=== PATIENT | male | born 1960 | race Caucasian/White ===

== ENCOUNTER → 2017-09-11 | Day surgery (SDC) | payer BC ==
[~2017-09-11] MED LIST: ATENOLOL50 MG PO; FENTANYL CITRATE/PF 100MCG/2 ML INJ ONE; MIDAZOLAM HCL 2 MG/2 ML VIAL ONE; OR PHACO EYE KIT ONE; PREOP PHACO EYE KIT ONE
== END | disposition home or self-care (01) ==
LOC: OR 12:28
PROVIDERS: ATTEND Ophthalmology
DX: H25.12 Age-related nuclear cataract, left eye (principal); I10 Essential (primary) hypertension; R00.1 Bradycardia, unspecified; Z86.19 Personal history of other infectious and parasitic diseases
CPT/HCPCS: 66984; J2250; V2632

== ENCOUNTER 2018-11-11 16:28 | Inpatient (IN) | payer BC ==
[~2018-11-11] VITALS: Ht 175.3 cm; Wt 94.3 kg
[~2018-11-11 16:28] MED LIST changes: -FENTANYL CITRATE/PF 100MCG/2 ML INJ ONE; -MIDAZOLAM HCL 2 MG/2 ML VIAL ONE; -OR PHACO EYE KIT ONE; -PREOP PHACO EYE KIT ONE
--- OUTSIDE RECORDS SUMMARY | 2018-11-11 16:31 | XMS REPORT | Summary of Care ---
Author Author [facility] Address Unknown Phone Unavailable Encounter [facility]) [id number] Date(s): 07/19/16 - 08/17/16 [facility] Discharge Disposition: Home or Self Care Attending Physician: Jose Rafael Fernando MD Vital Signs No data available for this section Problem List No data available for this section Allergies, Adverse Reactions, Alerts No data available for this section Medications No data available for this section Results No data available for this section Immunizations No data available for this section Procedures No data available for this section Social History No data available for this section Assessment and Plan No data available for this section
--- OUTSIDE RECORDS SUMMARY | 2018-11-11 16:31 | XMS REPORT | Summary of Care ---
Author Author [facility] Address Unknown Phone Unavailable Encounter [facility]) [id number] Date(s): 06/18/16 - 07/17/16 [facility] Discharge Disposition: Home or Self Care [...]
--- OUTSIDE RECORDS SUMMARY | 2018-11-11 16:31 | XMS REPORT | Continuity of Care Document ---
Author Author [facility] Address Unknown Phone Unavailable Problems Problem Status Onset Date Classification Date Reported Comments Source RT RTC REPAIR Active 01/12/2016 [facility] [place] 780.79 - MALAISE AND FAT 786.05 - SHORTN Active 12/21/2014 [facility] [place] LT RTC REPAIR Active [facility] [place] LEFT RTC REPAIR Active [facility] [place] Medications Medication Details Route Status Patient Instructions Ordering Provider Order Date Source Allergies, Adverse Reactions, Alerts Substance Category Reaction Severity Reaction type Status Date Reported Comments Source Immunizations Immunization Date Given Site Status Last Updated Comments Source Results Order Name Results Value Reference Range Date Interpretation Comments Source Chest 2 views DX Chest 2 views DX Exam: Two-view chest x-ray Reason for Exam: Shortness of breath Comparison Exam: None Discussion: Cardiomediastinal silhouette is within normal limits. Both hemidiaphragms well visualized. No pulmonary edema or pleural effusions. No focal lung consolidations. Trachea is midline. No acute bony abnormalities. Impression: 1. No acute cardiopulmonary abnormalities. 12/21/2014 - - Read by: Gabriel Rocha MD Dictated Date/time: 12/21/14 13:15 Electronically Signed by: Gabriel Rocha MD 12/21/14 13:15 FINAL REPORT [facility] [place] Vital Signs Vital Sign Value Date Comments Source Encounters Location Location Details Encounter Type Encounter Number Reason For Visit Attending Provider ADM Date DC Date Status Source [facility] [place] [facility] [id number] Patrice Hart 12/21/2014 12/22/2014 [facility] [place] [facility] [id number] Jose Rafael Fernando 05/15/2016 06/14/2016 [facility] [place] [facility] [place] [facility] [id number] Jose Rafael Fernando 06/18/2016 07/18/2016 [facility] [place] [facility] [place] [facility] [id number] Jose Rafael Fernando 07/19/2016 08/18/2016 [facility] [place] [facility] [place] [facility] [id number] Jose Rafael Fernando 08/22/2016 09/21/2016 [facility] [place] [facility] [place] [facility] [id number] Jose Rafael Fernando 09/25/2016 10/25/2016 [facility] [place] Procedures Procedure Code Date Perfomer Comments Source
--- OUTSIDE RECORDS SUMMARY | 2018-11-11 16:31 | XMS REPORT | Summary of Care ---
Author Organization Unknown Address Unknown Phone Unavailable Encounter [facility]) [id number] Date(s): 12/21/14 - 12/21/14 [facility] - [place] [id number] [place] [address] [phone] Discharge Disposition: Home Physician Attending: Patrice Hart MD Vital Signs No data available for [...]
--- OUTSIDE RECORDS SUMMARY | 2018-11-11 16:31 | XMS REPORT | Summary of Care ---
Author Author [facility] Address Unknown Phone Unavailable Encounter [facility]) [id number] Date(s): 05/15/16 - 06/13/16 [facility] Discharge Disposition: Home or Self Care Attending [...]
--- OUTSIDE RECORDS SUMMARY | 2018-11-11 16:31 | XMS REPORT | Summary of Care ---
Author Author [facility] Address Unknown Phone Unavailable Encounter [facility]) [id number] Date(s): 08/22/16 - 09/20/16 [facility] Discharge Disposition: Home or Self Care [...]
--- OUTSIDE RECORDS SUMMARY | 2018-11-11 16:31 | XMS REPORT | Summary of Care ---
Author Author [facility] Address Unknown Phone Unavailable Encounter [facility]) [id number] Date(s): 09/25/16 - 10/24/16 [facility] Discharge Disposition: Home or Self Care Attending [...]
[2018-11-11] MEDS ORDERED: SODIUM CHLORIDE 0.9% 1000ML 1,000 ML IV STA (17:53)
[2018-11-11] MEDS ORDERED: VANCOMYCIN 1GM/NS 250 ML 250 ML IV ONE (18:00)
--- NOTE | 2018-11-11 19:45 | Diagnostic Imaging Report ---
LEFT KNEE X-RAY - 3 VIEWS HISTORY: ^pain and swelling ^[id number] ^1836 ^Y COMPARISON: None available. FINDINGS: Bones: No acute displaced fracture. Osseous alignment is within normal limits. Joints: The joint spaces are well-maintained. Soft tissues: The soft tissues appear unremarkable. IMPRESSION: No acute radiographic abnormality. Signed by: Dr. Yaritza Serrano M.D. on 11/11/2018 7:41 PM
[2018-11-11 20:38] LABS: ALANINE AMINOTRANSFERASE 34 IU/L (0-55); ALBUMIN 3.5 g/dL (3.5-5.0); ALBUMIN/GLOBULIN RATIO 0.9 (0.8-2.0); ALKALINE PHOSPHATASE 79 IU/L (40-150); ANION GAP 14.2 mmol/L (8-16); BLOOD UREA NITROGEN 10 mg/dL (7-26); BUN/CREATININE RATIO 12 (6-25); CALCIUM 10.2 mg/dL (8.4-10.2); CARBON DIOXIDE 24 mmol/L (22-29); CHLORIDE 98 mmol/L (98-107); CREATININE, SERUM 0.84 mg/dL (0.72-1.25); EST GLOMERULAR FILTRATION RATE > 60 ML/MIN (60-); GLUCOSE 109 mg/dL (74-118); POTASSIUM 4.2 mmol/L (3.5-5.1); SODIUM 132 mmol/L (136-145)
[2018-11-11 20:42] LABS: INR 0.96; PARTIAL THROMBOPLASTIN TIME 32.8 seconds (23.8-35.5); PROTHROMBIN TIME 13.7 seconds (11.9-14.5)
[2018-11-11] MEDS ORDERED: SODIUM CHLORIDE 0.9% 1000ML 1,000 ML ONE (21:08)
[2018-11-11] MEDS ORDERED: VANCOMYCIN 1GM/NS 250 ML 250 ML ONE (21:08)
[2018-11-11] MEDS ORDERED: TYLENOL # 31 EA PO (21:17)
[2018-11-11] MEDS ORDERED: CLINDAMYCIN HC300 MG PO (21:17)
[2018-11-11 21:46] LABS: BASOPHILS % 0.3 % (0.0-1.0); EOSINOPHILS % 0.2 % (0.0-6.0); HEMATOCRIT 44.4 % (38.2-49.6); HEMOGLOBIN 15.8 g/dL (14.0-18.0); LYMPHOCYTES # (AUTO) 1.7 (1.0-3.2); LYMPHOCYTES % 10.8 % (18.0-39.1); MEAN CORPUSCULAR HEMOGLOBIN 33.1 pg (28-32); MEAN CORPUSCULAR HGB CONC 35.6 g/dL (31-35); MEAN CORPUSCULAR VOLUME 92.9 fL (81-99); MONOCYTES # (AUTO) 1.3 (0.2-0.8); MONOCYTES % 7.8 % (4.4-11.3); NEUTROPHILS # (AUTO) 12.9 (2.1-6.9); NEUTROPHILS % 80.4 % (38.7-80.0); PLATELET COUNT 205 x10e3/uL (140-360); RED BLOOD COUNT 4.78 x10e6/uL (4.3-5.7); RED CELL DISTRIBUTION WIDTH 12.3 % (11.7-14.4)
[2018-11-11] MEDS ORDERED: ONDANSETRON HCL INJ 2MG/ML 2ML 2 MG/ML VIAL IV PRN (22:15)
[2018-11-11] MEDS ORDERED: MORPHINE SULFATE 2 MG/ML SYR 1ML IV PRN (22:15)
[2018-11-11] MEDS ORDERED: ACETAMINOPHEN 325 MG TAB PO PRN (22:15)
[2018-11-11] MEDS ORDERED: IBUPROFEN 400 MG TAB PO PRN (22:15)
--- OUTSIDE RECORDS SUMMARY | 2018-11-11 22:17 | XMS REPORT ---
Author [facility] Address Unknown Phone Unavailable Care Team Providers Care Tile Sprayer Name Role Phone Vianca DAMON Unavailable Unavailable Problems This patient has no known problems. Allergies, Adverse Reactions, Alerts This patient has no known allergies or adverse reactions. Medications This patient has no known medications. 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 FINDINGS: Bones: No acute displaced fracture. Osseous alignment is within normal limits. Joints: The joint spaces are well-maintained. Soft tissues: The soft tissues appear unremarkable. IMPRESSION: No acute radiographic abnormality. Signed by: Dr. Pardeep Lozano M.D. on 11/11/2018 7:41 PM Dictated By: PARDEEP LOZANO MD 40 Transcribed By: MERCY on 11/11/181940 COPY TO: MORRO LAMB NP
--- NOTE | 2018-11-11 22:30 | NUR ---
RECEIVED PATIENT FROM ER VIA STRETCHER. AAOX3. HAS REDNESS AND SWELLING TO L KNEE AND ASCENDING ANTERIOR THIGH. NO OPEN WOUNDS OR BRUISING. DENIES PAIN AT THIS TIME. ORIENTED TO ROOM. CALL LIGHT WITHIN REACH AND INSTRUCTED TO CALL FOR ASSISTANCE. PATIENT VERBALIZED UNDERSTANDING.
[2018-11-11] MEDS: MORPHINE SULFATE INJ 4 MG/ML INJ 1ML IV PRN (22:37)
--- NOTE | 2018-11-11 22:37 | NUR ---
REQUESTING PAIN MEDS, MEDICATED PER ORDERS
[2018-11-11 22:40] VITALS: BP 151/87
[2018-11-11 22:52] VITALS: BP 151/87
[2018-11-11 23:18] VITALS: BP 151/87
[2018-11-11] MEDS: SODIUM CHLORIDE 0.9% 1000ML 1,000 ML IV SCH (23:21)
[2018-11-11] MEDS: PIPER-TAZ 3.375 GM 50 ML IV SCH (23:21)
[2018-11-12] VITALS (7 sets, daily range): BP systolic 121–142; BP diastolic 75–80
[2018-11-12] MEDS: MORPHINE SULFATE INJ 4 MG/ML INJ 1ML IV PRN ×5 (02:20→19:35)
[2018-11-12] MEDS: PIPER-TAZ 3.375 GM 50 ML IV SCH ×3 (05:07→21:56)
[2018-11-12 05:47] LABS: BASOPHILS # (AUTO) 0.1 (0.0-0.1); BASOPHILS % 0.4 % (0.0-1.0); EOSINOPHILS # (AUTO) 0.1 (0.0-0.4); EOSINOPHILS % 0.9 % (0.0-6.0); HEMATOCRIT 39.1 % (38.2-49.6); HEMOGLOBIN 13.5 g/dL (14.0-18.0); LYMPHOCYTES # (AUTO) 1.6 (1.0-3.2); LYMPHOCYTES % 12.1 % (18.0-39.1); MEAN CORPUSCULAR HGB CONC 34.5 g/dL (31-35); MEAN CORPUSCULAR VOLUME 95.6 fL (81-99); MONOCYTES # (AUTO) 1.2 (0.2-0.8); MONOCYTES % 9.6 % (4.4-11.3); NEUTROPHILS # (AUTO) 9.9 (2.1-6.9); NEUTROPHILS % 76.7 % (38.7-80.0); PLATELET COUNT 158 x10e3/uL (140-360); RED BLOOD COUNT 4.09 x10e6/uL (4.3-5.7); RED CELL DISTRIBUTION WIDTH 12.3 % (11.7-14.4)
[2018-11-12 06:01] LABS: ALANINE AMINOTRANSFERASE 25 IU/L (0-55); ALBUMIN 2.7 g/dL (3.5-5.0); ALBUMIN/GLOBULIN RATIO 0.8 (0.8-2.0); ALKALINE PHOSPHATASE 50 IU/L (40-150); ANION GAP 10.9 mmol/L (8-16); BLOOD UREA NITROGEN 9 mg/dL (7-26); BUN/CREATININE RATIO 11 (6-25); CALCIUM 8.7 mg/dL (8.4-10.2); CARBON DIOXIDE 23 mmol/L (22-29); CHLORIDE 103 mmol/L (98-107); CREATININE, SERUM 0.82 mg/dL (0.72-1.25); EST GLOMERULAR FILTRATION RATE > 60 ML/MIN (60-); GLUCOSE 110 mg/dL (74-118); POTASSIUM 3.9 mmol/L (3.5-5.1); SODIUM 133 mmol/L (136-145)
[2018-11-12] MEDS: SODIUM CHLORIDE 0.9% 1000ML 1,000 ML IV SCH ×3 (06:18→20:33)
--- NOTE | 2018-11-12 07:20 | NUR ---
PATIENT IN BED SITTING UP IN BED TALKING ON THE PHONE, NO RESPIRATORY DISTRESS OBSERVED. REDNESS AND SWELLING TO LEFT KNEE. IV FLUID INFUSING ORDERED. BED IN LOWER POSITION, CALL LIGHT AT REACH.
[2018-11-12] MEDS: ATENOLOL 50 MG TAB PO SCH ×2 (09:00→17:00)
[2018-11-12] MEDS: VANCOMYCIN 1GM/NS 250 ML 250 ML IV SCH ×2 (09:47→20:32)
--- NOTE | 2018-11-12 11:40 | NUR ---
PATIENT OFF UNIT TO RADIOLOGY.
--- NOTE | 2018-11-12 11:58 | NUR ---
PATIENT BACK TO UNIT FROM RADIOLOGY.
--- NOTE | 2018-11-12 12:25 | Diagnostic Imaging Report ---
EXAM: CT left lower extremity without contrast. INDICATION: History of cellulitis with knee swelling. COMPARISON: Left knee radiograph 11/11/2018. TECHNIQUE: Multidetector CT images were obtained of the left lower extremity from the level of the mid femur to the mid tibia/fibula. Dose modulation, iterative reconstruction, and/or weight based adjustment of the mA/kV was utilized to reduce the radiation dose to as low as reasonably achievable. IV CONTRAST: None. ORAL CONTRAST: None. RADIATION DOSE: Total DLP: 247.2 mGy*cm Estimated effective dose: (DLP x 0.015 x size factor) mSv COMPLICATIONS: None FINDINGS: There is diffuse subcutaneous edema throughout the left lower extremity, most pronounced in the pre-patellar location. Evaluation is somewhat limited by the lack of IV contrast, however there is no specific evidence of drainable fluid collection. No evidence of bony destructive changes, acute fracture or malalignment. No evidence of knee joint effusion. Mild medial compartment degenerative changes of the knee with joint space narrowing. Scattered atherosclerotic vascular calcifications. IMPRESSION: Subcutaneous edema throughout the left lower extremity most confluent in the pre-patellar location, which could represent cellulitis in the appropriate clinical context. Evaluation is somewhat limited by the lack of IV contrast, however there is no specific evidence of drainable fluid collection or bony destructive changes. Signed by: Dr. Chela Boyer MD on 11/12/2018 12:21 PM
--- NOTE | 2018-11-12 15:52 | NUR ---
PATIENT ASSISTED TO THE RESTROOM AND BACK TO BED. IV FLUID INFUSING ORDERED. CALL LIGHT AT REACH.
--- NOTE | 2018-11-12 18:13 | History and Physical ---
CHIEF COMPLAINT: Swelling, redness and pain in the left knee last 3 days. HISTORY OF PRESENT ILLNESS: Mr. 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 He went to work 3 days ago and then noticed next day that he had redness, swelling around his knee and it progressively got worse with pain and fever at home, so they decided to come to the emergency room. In the emergency room, the patient was afebrile, IV antibiotics were given and IV analgesics were given and IV hydration was started. He is denying any complaints of chest pain, abdominal pain, nausea, vomiting. REVIEW OF SYSTEMS: GENERAL: Having fever and chills. HEAD: Denies any head trauma. ENT: Denies any earaches. CVS: Denies any chest pain. RESPIRATORY: Shortness of breath. GI: Denies any nausea or vomiting. The rest of the review of systems are negative except as in the HPI. PAST MEDICAL HISTORY: None. PAST SURGICAL HISTORY: Show rotator cuff surgery. FAMILY AND SOCIAL HISTORY: He does not smoke, does not drink. PHYSICAL EXAMINATION: VITAL SIGNS: Temperature 97.5, pulse of 88, blood pressure 122/79, O2 sat 93% on room air. HEENT: Atraumatic and normocephalic. NECK: Supple. CHEST: Clear to auscultation bilaterally. No wheezing. HEART: S1 and S2 audible. No murmurs. ABDOMEN: Soft. Nontender. Nondistended. EXTREMITIES: Left lower extremity knee redness, swelling extending to the lower thigh. LABORATORY DATA: White count 12,000, white count was 16,000 earlier, hemoglobin 13.5, platelets 158. ASSESSMENT: Mr. Gee is a 58-year-old male, who presented to the emergency room with left knee pain and swelling, redness, left leg cellulitis of the knee versus septic joint. PLAN: 1. Orthopedic consult. 2. ID consult. 3. CT of the knee and lower extremity, knee x-ray done in the emergency room is not showing any abnormalities. 4. Continue IV vancomycin and Zosyn in the meantime. I discussed with the patient's at the bedside. MD CARROLL Ruiz/TANIKA /[id number]
--- NOTE | 2018-11-12 18:23 | NUR ---
CONSULTATION - ORTHOPEDICS Patient is a 58 year old community ambulating male without assistive devices who presented to the ED last night with left knee pain. Patient states that the pain and skin redness started on Friday. 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 He noted th e redness and swelling worsen and started to have difficulty ambulating. He later went to a occupational health provider who wrote him clindamycin. The redness continued to worsen and so did his pain. He denies any fevers, chills, numbness, paresthesias or loss of distal motor function. 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, Denies Tob & Drug Use, Social EtOH use with up to 24 beers in 3 days VS T 96.2, HR 82, RR 21, BP 121/75, O2 93% AOx3, NAD Patient resting comfortably at bedside Left Knee - small abrasion over patella, no area of fluctuance or drainage Erythema over patella with extension to medial thigh ROM 0-80 No pain with PROM Chicho 1A, No instability with varus/valgus or anterior/posterior drawer testing Negative Sam WBC 12.94 (improved from yesterday) Blood Cx: Pending Xrays of left knee demonstrate no gross fracture or dislocation CT: Subcutaneous edema without collection 58 year old male with Left Knee Cellulitis At this time, there is a low likelihood of septic arthritis and there is no distinct collection or area of fluctuance that needs to be debrided or can be aspirated. Recommend empiric antibiotics for cellulitis. Patient has improved significantly from last night after IV antibiotics Weight bearing as tolerated DVT Prophylaxis recommended while in hospital Recommend ID Consultation Follow up Blood Cultures Follow up CRP Warm compresses to left knee May weight bear as tolerated No acute Orthopedic intervention required at this time, however if a collection or area of fluctuance presents itself or patients condition worsens, please reconsult PRN Follow up in my office in 2 weeks Thank you for allowing me to participate in the care of your patient. DO E[facility]L [facility]
--- NOTE | 2018-11-12 19:00 | NUR ---
SHIFT REPORT RECEIVED BY DAY NURSE. PATIENT DENIES NEEDS AT THIS TIME. CALL LIGHT WITHIN REACH AND INSTRUCTED TO CALL FOR ASSISTANCE. PATIENT VERBALIZED UNDERSTANDING.
--- NOTE | 2018-11-12 19:02 | NUR ---
Nutrition Screen Note RD Recommendation for Physician: -Continue cardiac diet as ordered Plan of Care: RD following, monitoring for tolerance and adequacy Nutrition reason for involvement: Nutrition Risk Trigger MST Primary Diagnose(s): L knee cellulitis PMH: HTN Ht: 69in Wt: 206lb BMI: 30.4kg/m2 IBW: 160lb RD Assessment: (11/12) Chart reviewed. Labs and meds reviewed. 58yo M, who was admitted for L knee pain. 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 Pt denied chewing/swallowing problems and nausea/vomiting. RN recorded 100% meal intake since admission. Will continue to monitor and follow. Current Diet: cardiac diet Malnutrition Evaluation (11/12) The patient does not meet criteria for a specified degree of malnutrition at this time. Will re-evaluate at follow-up as appropriate. Diet Education Needs Assessment: Diet education not indicated. Nutrition Care Level: low Signed: Eva Raman, MS, RD, LD
--- NOTE | 2018-11-12 22:30 | Consultation ---
DATE OF CONSULTATION: REASON FOR CONSULTATION: Cellulitis, bursitis. 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 He does kneel a lot. Noted to have redness and swelling of his knee that spread up to his leg. He went to see his physician, given some oral antibiotics, but it was not getting any better. He came here because the redness was going up to his thigh. The patient is currently lying in bed comfortably. PAST MEDICAL HISTORY: Hypertension. PAST SURGICAL HISTORY: Denies. ALLERGIES: NKA. SOCIAL HISTORY: There is no smoking, drug abuse, or alcohol abuse. FAMILY HISTORY: Otherwise noncontributory. REVIEW OF SYSTEMS: HEENT: Negative. PULMONARY: Negative. CARDIAC: Negative. : Negative. SKIN: There is no other rash. PHYSICAL EXAMINATION: GENERAL: He is currently alert and oriented, does not seem to be in acute distress. VITAL SIGNS: Stable. Currently afebrile. HEENT: No pallor or icteric. NECK: Supple. CHEST: Clear. HEART: S1 and S2, normal. ABDOMEN: Soft. Bowel sounds positive. EXTREMITIES: No edema. The left leg, there is erythema. There is some effusion noted in the bursa, but the knee itself has no effusion. The erythema is around the knee and going all the way back to the back of his leg and going up to the thigh. 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 I think this is work related. The patient did improve with vancomycin and Zosyn, continue the same. Blood culture is pending. Orthopedic was consulted. We will follow with you. MD IVANNA Diamond/TANIKA /[id number]
[2018-11-13] VITALS (8 sets, daily range): BP systolic 131–166; BP diastolic 80–93
[2018-11-13] MEDS: PIPER-TAZ 3.375 GM 50 ML IV SCH ×3 (05:17→22:30)
[2018-11-13] MEDS: SODIUM CHLORIDE 0.9% 1000ML 1,000 ML IV SCH (06:40)
[2018-11-13] MEDS: MORPHINE SULFATE INJ 4 MG/ML INJ 1ML IV PRN ×2 (06:48→20:03)
[2018-11-13] MEDS: ATENOLOL 50 MG TAB PO SCH ×2 (08:58→16:56)
[2018-11-13] MEDS: VANCOMYCIN 1GM/NS 250 ML 250 ML IV SCH ×2 (09:11→21:51)
--- NOTE | 2018-11-13 16:58 | NUR ---
CASE MANAGEMENT INITIAL ASSESSMENT Oracle Engineer to bedside to discuss plan of care with patient/family. CM/SW role and care transitions discussed. Anticipated discharge plan discussed along with duration of care. CM/SW discussed patients right to make decisions in care. CM/SW work hours given. 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 Name and number was also written on the patients whiteboard. Patient verbalized understanding of discussion. CM will follow-up with ongoing discharge and transition of care needs.
[2018-11-14] VITALS (8 sets, daily range): BP systolic 113–153; BP diastolic 65–83
[2018-11-14] MEDS: PIPER-TAZ 3.375 GM 50 ML IV SCH ×2 (06:38→14:00)
--- NOTE | 2018-11-14 07:00 | NUR ---
Report given to oncoming nurse,walking round done.
--- NOTE | 2018-11-14 07:26 | NUR ---
PROGRESS NOTES - ORTHOPEDICS Patient seen & examined resting comfortably at bedside. Erythema is slowly improving. Continues to have some pain when ambulating anteriorly. No numbness, paresthesias or loss of distal motor function VS 97.3, HR 69, RR 18, BP 141/82, O2 93% on RA Left Knee Decreased erythema in intensity and size, No palpable area of localized fluctuance Able to PROM without pain Motor: + EHL, FHL, TA, G/S Sensation grossly intact to light touch Pulses + DP, Post tib Compartments soft Negative calf tenderness 58 year old M with prepatellar cellulitis with extension medial up the thigh - improving Continue IV antibiotics Analgesics PRN DVT Prophylaxis Warm Compresses WBAT If no improvement, consider MRI or US to identify areas of fluctuance for potential I&D Patient aware and amendable to plan. Adamaris Lee, DO [facility]
[2018-11-14] MEDS: VANCOMYCIN 1GM/NS 250 ML 250 ML IV SCH (08:21)
[2018-11-14] MEDS: ATENOLOL 50 MG TAB PO SCH ×2 (08:21→17:31)
[2018-11-14] MEDS ORDERED: VANCOMYCIN HCL 1.5 GM in SODIUM CHLORIDE 0.9% 250ML 300 ML IV SCH (17:00)
[2018-11-14] MEDS: CEFEPIME 2 GM/NS 0.9% 100 ML 100 ML IV SCH (17:51)
--- NOTE | 2018-11-14 18:38 | Progress Note ---
DATE: Mr. Gee continued to have redness, swelling in the anterior aspect of his knee. It is more localized and there is some induration noted. The knee joint is okay; however, I think there is fluid noted in the prepatellar space. At the present time, I am concerned about bursitis. Continue with vancomycin. Continue with Zosyn. Would need orthopedic evaluation for debridement. We will follow. MD IVANNA Diamond/TANIKA /[id number]
--- NOTE | 2018-11-14 19:28 | Diagnostic Imaging Report ---
EXAMINATION: CHEST XRAY LINE PLACEMENT COMPARISON: None INDICATION: PICC line placement ^pic line placement ^Y DISCUSSION: Frontal view of the chest obtained at 1904 hours. HEART AND MEDIASTINUM: The cardiomediastinal silhouette is unremarkable. LINES: Right PICC line terminates in the SVC. No pneumothorax. LUNGS: The lungs are well inflated and clear. There is eventration of the right diaphragm with minimal atelectasis of the right lung base. Left lung is clear. PLEURA: No pleural effusion or pneumothorax. BONES AND SOFT TISSUES: Sclerotic lesion in the left humeral head measures X millimeters with narrow zone of transition, likely a bone island. The soft tissues are normal. IMPRESSION: Right PICC line terminates in the SVC without pneumothorax. 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 Signed by: Dr. Spencer Cox MD on 11/14/2018 7:25 PM
[2018-11-14] MEDS: MORPHINE SULFATE INJ 4 MG/ML INJ 1ML IV PRN (20:22)
[2018-11-14] MEDS: VANCOMYCIN HCL 1.5 GM in SODIUM CHLORIDE 0.9% 250ML 300 ML IV SCH (20:22)
[2018-11-15] VITALS (8 sets, daily range): BP systolic 117–172; BP diastolic 60–85
[2018-11-15] MEDS: CEFEPIME 2 GM/NS 0.9% 100 ML 100 ML IV SCH ×2 (05:21→16:30)
--- NOTE | 2018-11-15 06:50 | NUR ---
Report given to oncoming nurse.
[2018-11-15] MEDS: ATENOLOL 50 MG TAB PO SCH ×2 (08:39→16:30)
[2018-11-15] MEDS: VANCOMYCIN HCL 1.5 GM in SODIUM CHLORIDE 0.9% 250ML 300 ML IV SCH ×2 (09:12→21:22)
--- NOTE | 2018-11-15 20:02 | NUR ---
RECEIVED PT IN BED AOX3 ..LEFT KNEE CELLULITIS AND IS RED AND SWOLLEN.PT DENIES PAIN .CALL LIGHT WITH IN REACH .CONTINUE TO MONITOR
[2018-11-16] VITALS (8 sets, daily range): BP systolic 122–156; BP diastolic 75–96
[2018-11-16] MEDS: CEFEPIME 2 GM/NS 0.9% 100 ML 100 ML IV SCH ×2 (04:30→16:40)
--- NOTE | 2018-11-16 07:45 | NUR ---
PT RESTING NO C/O PAIN CONTINUE TO MONITOR
[2018-11-16] MEDS: VANCOMYCIN HCL 1.5 GM in SODIUM CHLORIDE 0.9% 250ML 300 ML IV SCH ×2 (08:46→21:58)
[2018-11-16] MEDS: ATENOLOL 50 MG TAB PO SCH ×2 (08:46→17:35)
[2018-11-16] MEDS ORDERED: GADOBENATE DIMEGLUMINE 1 ML IV ONE (15:02)
--- NOTE | 2018-11-16 16:32 | Diagnostic Imaging Report ---
TECHNIQUE: Magnetic resonance imaging of the LEFT KNEE was performed WITH and WITHOUT injected contrast, 20 cc of MultiHance. HISTORY: Cellulitis COMPARISON: Left knee radiographs June 12, 2019. Left knee CT November 12, 2018. FINDINGS: LIGAMENTS AND TENDONS: ACL: Intact PCL: Intact Collateral ligaments: Intact Iliotibial band: Unremarkable Popliteal tendon: Intact Extensor mechanism: Intact JOINT: Menisci: Medial: Mild complex tearing and attenuation of the body. Intrasubstance degeneration of the posterior horn. Lateral: Intact Articular Cartilage: Medial Compartment: Low-grade erosion of the weightbearing cartilage. Lateral Compartment: No focal defect. Patellofemoral Compartment: Diffuse intermediate grade erosion. Joint Fluid: The amount of fluid within the joint is within physiologic limits. BONES: No focal or infiltrative bone marrow replacing abnormality. No acute fracture. SOFT TISSUES: Prominent anterior soft tissue edema and hyperemia, with focal fluid at the expected region of the prepatellar bursa. IMPRESSION: 1. Prepatellar bursitis and regional findings compatible with the provided history of cellulitis. 2. Medial and patellofemoral compartment degenerative changes, including degenerative tearing of the medial meniscus. Signed by: Dr. Charles Morgan D.O., M.M.M. on 11/16/2018 4:28 PM
[2018-11-16] MEDS ORDERED: LIDOCAINE HCL 1% LOCAL INJ 20 ML VIAL INJ ONE (17:00)
[2018-11-16] MEDS: MORPHINE SULFATE INJ 4 MG/ML INJ 1ML IV PRN (17:32)
--- NOTE | 2018-11-16 17:46 | NUR ---
PROGRESS NOTES - ORTHOPEDICS Patient seen & examined, feeling much better however continues to have prepatellar pain. No recent fevers or chills, numbness, tingling or loss of distal motor function. Erythema has much improved. VS T 97.8 HR 80 RR 20 BP 146/96 O2 100% Left Knee Erythema much improved, localized to prepatella region No palpable area of fluctuance No pain with PROM Motor: + EHL, FHL, TA, G/S Sensation grossly intact Pulses + DP, Post tib Compartments soft MRI: demonstrates small area of fluid collect in prepatellar bursa 58 year old male with left knee prepatellar bursitis and cellulitis Procedure: After obtaining informed consent, the patient and laterality of the procedure was confirmed. After sterile prep of the knee, the bursa received 1% lidocaine for local anesthestic. After adequate anesthesia, a small 2 cm incision was made over the distal pole of the patella. 3 Culture swabs were obtained. 3 cm of surrounding bursa tissue was irrigated and debrided. Packing was placed into the prepatellar bursa and a dry sterile dressing was applied. Patient tolerated the procedure well. Plan: Remove 1 inch of packing per day with new dressing change Continue antibiotics as per ID Follow up culture swabs Continue warm compresses Analgesics PRN WBAT DO [facility]
--- NOTE | 2018-11-16 19:10 | NUR ---
PT IS RESTING IN BED WITH AT BEDSIDE. NO RESPIRATORY DISTRESS NOTED. BED IN THE LOWEST POSITION, LOCKED, AND CALL LIGHT WITHIN REACH. WILL CONTINUE TO MONITOR.
[2018-11-16 20:58] LABS: BASOPHILS # (AUTO) 0.1 (0.0-0.1); BASOPHILS % 0.6 % (0.0-1.0); EOSINOPHILS # (AUTO) 0.2 (0.0-0.4); HEMOGLOBIN 14.2 g/dL (14.0-18.0); LYMPHOCYTES # (AUTO) 2.3 (1.0-3.2); LYMPHOCYTES % 20.7 % (18.0-39.1); MEAN CORPUSCULAR HGB CONC 34.6 g/dL (31-35); MEAN CORPUSCULAR VOLUME 95.3 fL (81-99); MONOCYTES # (AUTO) 1.2 (0.2-0.8); MONOCYTES % 10.6 % (4.4-11.3); NEUTROPHILS # (AUTO) 7.2 (2.1-6.9); NEUTROPHILS % 65.6 % (38.7-80.0); PLATELET COUNT 234 x10e3/uL (140-360); RED CELL DISTRIBUTION WIDTH 11.9 % (11.7-14.4)
[2018-11-16 21:57] LABS: ERYTHROCYTE SEDIMENTATION RATE 33 mm/hr (0-13)
--- NOTE | 2018-11-16 22:05 | NUR ---
PER DR AYALA MAALOX 30ML Q8H PRN AND PEPCID 20MG DAILY. WILL CONTINUE TO MONITOR.
[2018-11-16] MEDS ORDERED: MAGNESIUM/ALUMINUM/SIMETHICONE 30 ML UDC PO PRN (22:15)
[2018-11-17] VITALS (7 sets, daily range): BP systolic 113–138; BP diastolic 68–87
[2018-11-17] MEDS: CEFEPIME 2 GM/NS 0.9% 100 ML 100 ML IV SCH ×2 (04:24→17:42)
[2018-11-17] MEDS: MORPHINE SULFATE INJ 4 MG/ML INJ 1ML IV PRN ×2 (06:16→22:08)
[2018-11-17 06:31] LABS: BASOPHILS # (AUTO) 0.1 (0.0-0.1); BASOPHILS % 0.8 % (0.0-1.0); EOSINOPHILS # (AUTO) 0.2 (0.0-0.4); EOSINOPHILS % 2.2 % (0.0-6.0); HEMATOCRIT 42.9 % (38.2-49.6); HEMOGLOBIN 14.6 g/dL (14.0-18.0); LYMPHOCYTES # (AUTO) 1.6 (1.0-3.2); LYMPHOCYTES % 15.8 % (18.0-39.1); MEAN CORPUSCULAR HEMOGLOBIN 32.5 pg (28-32); MEAN CORPUSCULAR VOLUME 95.5 fL (81-99); MONOCYTES # (AUTO) 1.1 (0.2-0.8); MONOCYTES % 10.8 % (4.4-11.3); NEUTROPHILS # (AUTO) 6.9 (2.1-6.9); NEUTROPHILS % 69.8 % (38.7-80.0); PLATELET COUNT 234 x10e3/uL (140-360); RED BLOOD COUNT 4.49 x10e6/uL (4.3-5.7)
[2018-11-17 06:57] LABS: ANION GAP 11.9 mmol/L (8-16); BLOOD UREA NITROGEN 9 mg/dL (7-26); BUN/CREATININE RATIO 12 (6-25); CALCIUM 9.4 mg/dL (8.4-10.2); CARBON DIOXIDE 25 mmol/L (22-29); CHLORIDE 101 mmol/L (98-107); CREATININE, SERUM 0.74 mg/dL (0.72-1.25); EST GLOMERULAR FILTRATION RATE > 60 ML/MIN (60-); GLUCOSE 90 mg/dL (74-118); POTASSIUM 3.9 mmol/L (3.5-5.1); SODIUM 134 mmol/L (136-145)
[2018-11-17] MEDS ORDERED: FAMOTIDINE 20 MG TAB PO ONE (09:00)
[2018-11-17] MEDS ORDERED: ATENOLOL50 MG PO (09:02)
[2018-11-17] MEDS ORDERED: VANCOMYCIN1 GM/250 M IV (09:02)
[2018-11-17] MEDS: ATENOLOL 50 MG TAB PO SCH ×2 (09:44→17:36)
--- NOTE | 2018-11-17 09:45 | NUR ---
WARM COMPRESSION GIVEN TO PATIENT
[2018-11-17] MEDS: VANCOMYCIN HCL 1.5 GM in SODIUM CHLORIDE 0.9% 250ML 300 ML IV SCH ×2 (10:28→22:03)
--- NOTE | 2018-11-17 13:55 | NUR ---
PROGRESS NOTE - ORTHOPEDICS Patient seen & examined resting comfortably in bedside. Has been able to ambulate. Denies any fevers, chills, numbness, paresthesias or loss of distal motor function. VS T 98.4, HR 76, RR 18, BP 124/71, O2 94% (RA) Left Knee Dressing clean, dry and intact Incision - packing in place, no active drainage, mildly improved erythema Motor: + EHL, FHL, Ta, G/S Sensation grossly intact Pulses + DP, Post tib Compartments soft Negative calf tenderness WBC 9.82, ESR 33, CRP - Pending Wound Culture - Pending 58 year old Male with left knee prepatellar bursitis s/p I&D (11/16/18) Follow up CRP Follow up Wound Culture Continue Antibiotics as per ID Analgesics PRN DVT prophylaxis WBAT Continue to removed 1 inch of packing each day. Will re-evaluate tomorrow. DO [facility]
--- NOTE | 2018-11-17 19:19 | NUR ---
PATIENT IN STABLE CONDITION WITH NO S/S OF RESPIRATORY DISTRESS. NO PAIN VOICED. DRESSING INTACT TO LEFT KNEE. CALL LIGHT IS WITHIN REACH, INSTRUCTED TO CALL FOR ASSISTANCE NEEDED. PRESENT IN ROOM. REPORT GIVEN TO ONCOMING NURSE.
[2018-11-18] VITALS: BP 124/76
[2018-11-18 04:00] VITALS: BP 131/79
[2018-11-18] MEDS: CEFEPIME 2 GM/NS 0.9% 100 ML 100 ML IV SCH ×2 (04:33→16:57)
[2018-11-18 08:00] VITALS: BP 146/85
[2018-11-18 08:55] VITALS: BP 146/85
--- NOTE | 2018-11-18 08:55 | NUR ---
Pt received resting in bed with at bedside. Alert and oriented x4 with right upper arm PICC line. Pt is for discharge today. Oriented to staff and surroundings, encouraged to press call farfan if help needed. Emotional support given. Fall precautions maintained. Will monitor
[2018-11-18] MEDS: ATENOLOL 50 MG TAB PO SCH ×2 (09:00→16:58)
--- NOTE | 2018-11-18 09:25 | Discharge Summary ---
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 After work, he noted redness and swelling around the knee, felt this occurred during his time at work. 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 The swelling and redness began to swell, spread up to the thigh. A physician started him on clindamycin, but the patient did not improve and he was admitted for IV therapy, treated with vancomycin and cefepime. The prepatellar bursa was drained and purulent matter was extracted by the orthopedic surgeon and the wound was packed. The patient is to be discharged to continue his atenolol 50 mg b.i.d. and vancomycin for another 2-week course. Cultures and Gram stain of the wound are still pending. He will follow up with the orthopedist and his family physician as well. He subsequently changed to cefepime and vancomycin 1.5 g q.12, much improved walking with a walker. MD JAMIN Gardiner/TANIKA /[id number]
[2018-11-18] MEDS: VANCOMYCIN HCL 1.5 GM in SODIUM CHLORIDE 0.9% 250ML 300 ML IV SCH (10:44)
[2018-11-18 12:00] VITALS: BP 133/82
[2018-11-18 15:57] VITALS: BP 129/85
--- NOTE | 2018-11-18 16:03 | NUR ---
ROXI REC'D CALL FROM ALEX AT DR GUTIERREZ'S OFFICE OP [facility] APPROVED TODAY PT VERY EAGER TO GO HOME ROXI SPOKE WITH PT AND APPT AT DR GUTIERREZ'S OFFICE AT 9:30 TOMORROW THEY ARE FAMILIAR WITH DR GUTIERREZ'S OFFICE LOCATION AND HAVE HIS NUMBER PLAN DC HOME TODAY AFTER DR CUELLAR COMES AND ADVANCES PACKING NURSE HILDA AWARE OF DC PLAN
--- NOTE | 2018-11-18 18:13 | NUR ---
Pt resting in bed with family at bedside. Awaiting Dr. Selby to see pt's left knee. All meds given as ordered. Call farfan within reach. Will endorse to next shift
--- NOTE | 2018-11-18 18:55 | NUR ---
Dr. Lindsay arrived.
--- NOTE | 2018-11-18 19:19 | NUR ---
Pt given discharge instructions regarding meds, diet, activities, wound care and follow up appointment. Pt verbalized understanding of teaching. Left unit via wheelchair to private car
--- NOTE | 2018-11-18 20:23 | NUR ---
PROGRESS NOTE - ORTHOPEDICS Patient seen & examined resting comfortably at bedside. No fevers or chills. Improving pain in left knee AVSS Left Knee Erythema improving Packing in place Motor: + EHL, FHL, TA, G/S Sensation grossly intact Pulses + DP, Post tib Compartments soft Negative calf tenderness 58 year old M with Left Knee Prepatellar Bursitis and Cellulitis - improving Continue Antibiotics 1 in of packing withdrawn new dressing applied, educated on how to perform dressing changes Warm compresses WBAT Follow up in 1 week Orthopedically stable for discharge DO [facility]
== END 2018-11-18 19:44 | disposition home or self-care (01) | DRG 558 ==
LOC: ER 16:28 → ERHOLD 22:15 → MED/SURG3 22:43
PROVIDERS: ADMIT Internal Medicine; ATTEND Internal Medicine
PROC: 02HV33Z Insertion of Infusion Device into Superior Vena Cava, Percutaneous Approach (ICD-10-PCS; 2018-11-14)
PROC: 0M9N0ZX Drainage of Right Knee Bursa and Ligament, Open Approach, Diagnostic (ICD-10-PCS; principal; 2018-11-16)
DX: M70.41 Prepatellar bursitis, right knee (principal); L03.115 Cellulitis of right lower limb; I80.8 Phlebitis and thrombophlebitis of other sites
CPT/HCPCS: 36415; 36569; 71045; 80048; 80053; 80202; 83605; 85025; 85610; 85651; 85730; 86140; 87040; 87071; 87075; 87205; 97139; 99284; J2001; J2270; J2405; J2543; J3370; J7030; J7050